=== PATIENT | female | born 1950 | race Caucasian/White ===

== ENCOUNTER 2018-02-21 13:20 | Emergency (ER) | payer OTHER, MEDICAID ==
[~2018-02-21] VITALS: Ht 149.9 cm; Wt 58.0 kg
[2018-02-21] MEDS ORDERED: HYDROCODONE/ACETAMINOPHEN 5/325MG TABLET PO ONE (15:45)
[2018-02-21 19:13] VITALS: BP 130/70
== END 2018-02-21 19:26 | disposition home or self-care (01) ==
LOC: ER 16:16
DX: S82.142A Displaced bicondylar fracture of left tibia, initial encounter for closed fracture (principal); E11.9 Type 2 diabetes mellitus without complications; I10 Essential (primary) hypertension; W10.9XXA Fall (on) (from) unspecified stairs and steps, initial encounter; Y93.01 Activity, walking, marching and hiking; Y92.89 Other specified places as the place of occurrence of the external cause; Z90.710 Acquired absence of both cervix and uterus
CPT/HCPCS: 72170; 73552; 73560; 73590; 73600; 73620; 99284; L1830